=== PATIENT | female | born 1990 | race Caucasian/White ===

== ENCOUNTER 2021-06-22 02:30 | Inpatient (IN) | payer BC ==
[2021-06-22] VITALS (18 sets, daily range): BP systolic 98–120; BP diastolic 54–155
[~2021-06-22] VITALS: Ht 170.2 cm; Wt 81.8 kg
[2021-06-22] MEDS ORDERED: ondansetron/PF 4mg/2ml inj IV ONE ×2 (03:45→05:40)
[2021-06-22] MEDS ORDERED: morphine 4 MG/ML inj SYRINge IV ONE ×2 (03:45→05:00)
[2021-06-22 04:01] LABS: BASOPHILS # (AUTO) 0.1 X10'3 (0-0.2); BASOPHILS % (AUTO) 0.6 % (0-1); EOSINOPHILS # (AUTO) 0.1 X10'3 (0-0.9); EOSINOPHILS % (AUTO) 0.3 % (0-6); HEMATOCRIT 31.8 % (35.0-45.0); HEMOGLOBIN 10.2 g/dl (12.0-16.0); LYMPHOCYTES # (AUTO) 1.3 X10'3 (1.1-4.8); LYMPHOCYTES % (AUTO) 7.1 % (21-51); MEAN CORPUSCULAR HEMOGLOBIN 24.8 PG (27.0-31.0); MEAN CORPUSCULAR VOLUME 77.3 FL (78-98); MEAN PLATELET VOLUME 8.1 FL (7.4-10.4); MONOCYTES # (AUTO) 1.5 X10'3 (0-0.9); MONOCYTES % (AUTO) 8.3 % (2-12); NEUTROPHILS # (AUTO) 15.1 X10'3 (1.8-7.7); NEUTROPHILS % (AUTO) 83.7 % (42-75); PLATELET COUNT 451 X10'3 (140-440); RED BLOOD COUNT 4.12 X10'6 (4.20-5.60); RED CELL DISTRIBUTION WIDTH 15.7 % (11.5-14.5)
[2021-06-22 04:07] LABS: ALANINE AMINOTRANSFERASE 20 U/L (12-78); ALBUMIN 3.9 G/DL (3.4-5.0); ALKALINE PHOSPHATASE 111 IU/L (46-116); ANION GAP 17 (8-16); ASPARTATE AMINO TRANSFERASE 14 U/L (10-37); BILIRUBIN,TOTAL 0.5 MG/DL (0.1-1.0); BLOOD UREA NITROGEN 10 MG/DL (7-18); BUN/CREATININE RATIO 10.2 (6.6-38.0); CHLORIDE 104 MMOL/L (99-107); CREATININE 0.98 MG/DL (0.40-0.90); GLUCOSE 117 MG/DL (70-104); POTASSIUM 3.2 MMOL/L (3.5-5.1); SODIUM 140 MMOL/L (135-145); TOTAL PROTEIN 7.9 G/DL (6.4-8.2); eGFR 67 ML/MIN
[2021-06-22 04:36] LABS: CLARITY,URINE SLIGHTLY CLOUDY (Clear); COLOR,URINE YELLOW (Yellow); GLUCOSE, URINE NEGATIVE (Neg); KETONES,URINE 15 mg/dl (Neg); LEUKOCYTE ESTERASE ,URINE NEGATIVE (Neg); NITRITES, URINE NEGATIVE (Neg); OCCULT BLOOD,URINE NEGATIVE (Neg); PH,URINE 5.5 (4.8-8.0); PROTEIN,URINE 100 mg/dl (Neg)
[2021-06-22 04:42] LABS: UA COLLECTION TYPE CLN CATCH MIDSTREAM
[2021-06-22 04:45] LABS: RBC,URINE 0-2 /HPF (0-2); WBC,URINE 0-4 /HPF (0-4)
[2021-06-22 04:46] LABS: BACTERIA,URINE NONE SEEN /HPF (Neg); CAL OXALATE CRYSTALS 2+ /HPF (NEGATIVE); MUCUS STRANDS MANY /LPF (Neg); SQUAMOUS EPITHELIAL CELL,UR MODERATE /LPF (FEW)
[2021-06-22] MEDS ORDERED: acetaminophen 325mg tablet PO ONE (05:20)
[2021-06-22] MEDS ORDERED: normal saline 1000ML IV soln IVB ONE (05:40)
[2021-06-22] MEDS ORDERED: piperacillin/tazo 3.375gm/50ml 50 ML IV ONE (05:40)
[2021-06-22] MEDS ORDERED: ketorolac tromethamine 15mg/ml inj. IV ONE (05:40)
[2021-06-22] MEDS: morphine 2 MG/ML inj. syringe IV PRN ×6 (07:32→16:44)
[2021-06-22] MEDS ORDERED: LIDOcaine 1% W/epiNEPHrine 1:200,000 10ml vial IJ ONE (07:35)
[2021-06-22] MEDS ORDERED: iohexol 300mg/ml 100ml inj. ONE (08:18)
[2021-06-22 09:10] LABS: URINE HCG NEGATIVE (NEG)
--- NOTE | 2021-06-22 11:21 | NUR ---
DR. BUSTAMANTE AT THE BEDSIDE. LOOKED AT ABSCESS. TALKED TO PT. PT. GOING TO SURGERY AT 1800
[2021-06-22] MEDS ORDERED: acetaminophen 325mg tablet PO PRN (12:05)
[2021-06-22] MEDS ORDERED: magnesium 4gm in 100ml NS 100 ML IV PRN (12:05)
[2021-06-22] MEDS ORDERED: magnesium Cl slow-release 64mg tablet PO PRN (12:05)
[2021-06-22] MEDS ORDERED: potassium Cl 40MEQ/1/2NS 520ml 520 ML IV PRN (12:05)
[2021-06-22] MEDS ORDERED: morphine 2 MG/ML inj. syringe IV PRN ×2 (12:05→17:40)
[2021-06-22] MEDS ORDERED: potassium Cl 20 mEq SR tablet PO PRN ×2 (12:05)
[2021-06-22] MEDS ORDERED: magnesium hydroxide 30ml (MOM) UD suspension PO PRN (12:05)
[2021-06-22] MEDS ORDERED: magnesium 2GM in 50ml NS 50 ML IV PRN (12:05)
[2021-06-22] MEDS ORDERED: mag hydrox/Alum hydrox/simeth 30ml oral suspension PO PRN (12:05)
--- NOTE | 2021-06-22 13:41 | NUR ---
ice pack applied to perineum area
[2021-06-22] MEDS: potassium cl 20mEq in 1/2 NS 1,000 ML IV SCH ×2 (15:00→22:05)
[2021-06-22] MEDS: potassium Cl 40MEQ/1/2NS 520ml 520 ML IV PRN (16:46)
[2021-06-22] MEDS: piperacillin/tazo 4.5gm/100ml 100 ML IV SCH (16:59)
[2021-06-22] MEDS ORDERED: labetalol 20mg/4ml (5mg/ml) syringe IV PRN (17:40)
[2021-06-22] MEDS ORDERED: acetaminophen 1,000mg/100ml IV 100 ML IV PRN (17:40)
[2021-06-22] MEDS ORDERED: morphine 4 MG/ML inj SYRINge IV PRN (17:40)
[2021-06-22] MEDS ORDERED: meperidine/PF 25mg/ml syringe IV PRN ×2 (17:40)
[2021-06-22] MEDS ORDERED: proCHLORperazine 10 MG/2 ml inj IV PRN (17:40)
[2021-06-22] MEDS ORDERED: hydrALAZINE 20mg/ml inj. IV PRN (17:40)
[2021-06-22] MEDS ORDERED: ondansetron/PF 4mg/2ml inj IV PRN ×2 (17:40)
[2021-06-22] MEDS ORDERED: ringers solution, lacted 1,000 ML IV SCH ×2 (17:40)
[2021-06-22] MEDS ORDERED: sevoflurane 250ml liquid IH ONE (17:45)
[2021-06-22] MEDS ORDERED: potassium Cl 40 mEq/0.45% sodium chloride IV soln 520ml IV ONE (17:45)
[2021-06-22] MEDS ORDERED: famotidine/PF 10 mg/ml inj IV ONE (17:47)
[2021-06-22] MEDS ORDERED: midazolam 1 mg/ML 2ml injection ONE (17:48)
--- NOTE | 2021-06-22 17:52 | NUR ---
Called report to Ava in OR. Patient sent in bed with scrub techs, pre op checklist complete. IVF running, IV potassium replacement and zosyn running also, all compatible per pharmacy. Medicated with morphine before leaving the floor. Blood glucose was 94.
[2021-06-22] MEDS ORDERED: fentaNYL/PF 50MCG/1 ML 2ML syringe ONE ×2 (18:05→18:24)
[2021-06-22] MEDS ORDERED: propofol inj 20 ML IV ONE (18:05)
[2021-06-22] MEDS ORDERED: LIDOcaine 2% (20mg/ml) 5ml vial ONE (18:05)
[2021-06-22] MEDS ORDERED: ondansetron/PF 4mg/2ml inj ONE (18:05)
[2021-06-22] MEDS ORDERED: dexamethasone sod phosphate 4mg/ml inj. ONE (18:05)
[2021-06-22] MEDS ORDERED: HYDR-3964 PO (18:09)
[2021-06-22] MEDS ORDERED: DOXY-327 PO (18:09)
[2021-06-22] MEDS ORDERED: acetaminophen 1,000mg/100ml IV 100 ML IV ONE (18:31)
[2021-06-22] MEDS ORDERED: HYDROmorphone 1 mg/ml syringe ONE (18:32)
--- NOTE | 2021-06-22 18:50 | NUR ---
Problems reprioritized. Patient report given, questions answered & plan of care reviewed with Maximilian GRAY.
--- NOTE | 2021-06-22 18:50 | NUR ---
Received from OR via BED, accompanied by Anesthesiologist CARLOS and report given by Anesthesiolgist. PT DROWSY,OXYGENATING WELL ON 10 LPM O2 VIA MASK, NO RESP DISTRESS NOTED. DENIES NAUSEA OR PAIN AT THIS TIME. PT HAS SURGICAL BRIEFS IN PLACE WITH MARJORIE PAD. ATTEMPTED TO VISUALIZE DRAIN THATS IN PLACE BUT PT DIDNT WANT TO BE MOVED DUE TO PAIN. VSS.
[2021-06-22] MEDS: K and/or MAG REPLACEMENT MC SCH (20:00)
--- NOTE | 2021-06-22 20:30 | NUR ---
Report called to receiving nurse. Transferred via BED Belongings IN PT ROOM. VSS. PT DENIES ANY PAIN OR NAUSEA. TOLERATING PO FLUIDS WELL. TRANSFERRED TO 4014A IN STABLE CONDITION. Special Issues communicated to receiving nurse.
[2021-06-22] MEDS: docusate sod 100mg capsule PO SCH (21:32)
[2021-06-22] MEDS: HYDROcodone/acetaminophen 5mg/325mg tablet PO PRN (21:32)
[2021-06-22] MEDS ORDERED: NO HOME MEDS PO (23:26)
[2021-06-23 00:15] VITALS: BP 95/57
[2021-06-23] MEDS: piperacillin/tazo 4.5gm/100ml 100 ML IV SCH ×3 (00:34→16:08)
[2021-06-23] MEDS: HYDROcodone/acetaminophen 5mg/325mg tablet PO PRN ×5 (01:45→19:59)
[2021-06-23 02:00] VITALS: BP 109/62
[2021-06-23] MEDS: potassium cl 20mEq in 1/2 NS 1,000 ML IV SCH ×2 (05:56→21:14)
--- NOTE | 2021-06-23 06:25 | NUR ---
Patient in room [facility]THO 4014. I have received report from Maximilian GRAY and had the opportunity to ask questions and assume patient care.
[2021-06-23 06:29] LABS: BASOPHILS % (AUTO) 0 % (0-1); EOSINOPHILS % (AUTO) 0 % (0-6); HEMATOCRIT 29.2 % (35.0-45.0); HEMOGLOBIN 9.4 g/dl (12.0-16.0); LYMPHOCYTES # (AUTO) 0.5 X10'3 (1.1-4.8); LYMPHOCYTES % (AUTO) 1.8 % (21-51); MEAN CORPUSCULAR HEMOGLOBIN 25.1 PG (27.0-31.0); MEAN CORPUSCULAR HGB CONC 32.2 g/dL (33.0-36.5); MEAN CORPUSCULAR VOLUME 77.9 FL (78-98); MEAN PLATELET VOLUME 8.1 FL (7.4-10.4); MONOCYTES # (AUTO) 1.5 X10'3 (0-0.9); MONOCYTES % (AUTO) 5.5 % (2-12); NEUTROPHILS # (AUTO) 24.9 X10'3 (1.8-7.7); NEUTROPHILS % (AUTO) 92.7 % (42-75); PLATELET COUNT 430 X10'3 (140-440); RED BLOOD COUNT 3.74 X10'6 (4.20-5.60); RED CELL DISTRIBUTION WIDTH 15.6 % (11.5-14.5)
[2021-06-23 06:33] LABS: WHITE BLOOD COUNT 26.8 X10'3 (4.5-11.0)
--- NOTE | 2021-06-23 06:46 | NUR ---
Dr. Flood notified about the critical WBC this am 26.8. No new order received.
[2021-06-23 06:58] LABS: ALANINE AMINOTRANSFERASE 24 U/L (12-78); ALBUMIN 3.4 G/DL (3.4-5.0); ALBUMIN/GLOBULIN RATIO 0.9 (1.1-1.5); ALKALINE PHOSPHATASE 126 IU/L (46-116); ANION GAP 11 (8-16); ASPARTATE AMINO TRANSFERASE 12 U/L (10-37); BLOOD UREA NITROGEN 7 MG/DL (7-18); BUN/CREATININE RATIO 9.2 (6.6-38.0); CALCIUM 8.9 MG/DL (8.5-10.1); CHLORIDE 104 MMOL/L (99-107); CREATININE 0.76 MG/DL (0.40-0.90); GLUCOSE 131 MG/DL (70-104); MAGNESIUM 1.8 MG/DL (1.5-2.4); POTASSIUM 4.2 MMOL/L (3.5-5.1); SODIUM 137 MMOL/L (135-145); TOTAL CARBON DIOXIDE 22.4 MMOL/L (24-32); TOTAL PROTEIN 7.4 G/DL (6.4-8.2); eGFR 89 ML/MIN
[2021-06-23 07:37] LABS: PLATELET ESTIMATE NORMAL; TOTAL CELLS COUNTED 100
[2021-06-23] MEDS: docusate sod 100mg capsule PO SCH ×2 (07:48→19:59)
[2021-06-23] MEDS: enoxaparin 40mg/0.4ml syringe SUBCUT SCH (07:50)
[2021-06-23] MEDS: morphine 2 MG/ML inj. syringe IV PRN (07:53)
[2021-06-23] MEDS: K and/or MAG REPLACEMENT MC SCH ×2 (08:00→20:00)
--- NOTE | 2021-06-23 12:39 | NUR ---
I showed Dr. Mercer that part of her drain fell out when she voided and am waiting to see if he orders anything regarding it.
--- NOTE | 2021-06-23 12:45 | NUR ---
I spoke to the pt and she said Dr. Mercer said to continue to monitor for drainage to come from the area and if it doesn't drain to notify the surgeon. Since the part of the drain came out of her.
[2021-06-23] MEDS: ondansetron/PF 4mg/2ml inj IV PRN (15:30)
--- NOTE | 2021-06-23 16:50 | NUR ---
Patient cleaned herself after she peed into the bedside commode, she wiped herself and showed me small amount of drainage from the perianal area.
[2021-06-23 19:00] VITALS: BP 88/55
[2021-06-23] MEDS: lactobacillus rhamnosus 10,000 MMU CELLS/CAPSULE PO SCH (19:59)
[2021-06-23 23:30] VITALS: BP 88/48
[2021-06-24] VITALS (21 sets, daily range): BP systolic 89–115; BP diastolic 48–80
[2021-06-24] MEDS: piperacillin/tazo 4.5gm/100ml 100 ML IV SCH ×4 (00:19→23:28)
[2021-06-24] MEDS: HYDROcodone/acetaminophen 5mg/325mg tablet PO PRN ×2 (00:24→23:10)
--- NOTE | 2021-06-24 03:00 | NUR ---
Radha pad has about 1/2 the drainage of previous pad, remains SS w/ light red. No c/o pain after pain meds given. Tolerated walk in cade to room 344.
[2021-06-24] MEDS: potassium cl 20mEq in 1/2 NS 1,000 ML IV SCH ×2 (04:47→14:36)
[2021-06-24 06:10] LABS: BASOPHILS % (AUTO) 0.2 % (0-1); EOSINOPHILS % (AUTO) 0.1 % (0-6); HEMOGLOBIN 8.1 g/dl (12.0-16.0); LYMPHOCYTES % (AUTO) 5.2 % (21-51); MEAN CORPUSCULAR HEMOGLOBIN 25.1 PG (27.0-31.0); MEAN CORPUSCULAR HGB CONC 32.2 g/dL (33.0-36.5); MEAN CORPUSCULAR VOLUME 77.7 FL (78-98); MEAN PLATELET VOLUME 8.1 FL (7.4-10.4); MONOCYTES # (AUTO) 1.3 X10'3 (0-0.9); MONOCYTES % (AUTO) 6.9 % (2-12); NEUTROPHILS # (AUTO) 16.3 X10'3 (1.8-7.7); NEUTROPHILS % (AUTO) 87.6 % (42-75); PLATELET COUNT 349 X10'3 (140-440); RED BLOOD COUNT 3.22 X10'6 (4.20-5.60); RED CELL DISTRIBUTION WIDTH 15.6 % (11.5-14.5); WHITE BLOOD COUNT 18.6 X10'3 (4.5-11.0)
[2021-06-24 06:34] LABS: ALANINE AMINOTRANSFERASE 22 U/L (12-78); ALBUMIN 2.8 G/DL (3.4-5.0); ALBUMIN/GLOBULIN RATIO 0.7 (1.1-1.5); ALKALINE PHOSPHATASE 166 IU/L (46-116); ANION GAP 14 (8-16); ASPARTATE AMINO TRANSFERASE 16 U/L (10-37); BILIRUBIN,TOTAL 1.1 MG/DL (0.1-1.0); BLOOD UREA NITROGEN 5 MG/DL (7-18); BUN/CREATININE RATIO 5.9 (6.6-38.0); CALCIUM 8.4 MG/DL (8.5-10.1); CHLORIDE 102 MMOL/L (99-107); CREATININE 0.85 MG/DL (0.40-0.90); GLUCOSE 109 MG/DL (70-104); MAGNESIUM 1.7 MG/DL (1.5-2.4); POTASSIUM 3.4 MMOL/L (3.5-5.1); SODIUM 139 MMOL/L (135-145); TOTAL CARBON DIOXIDE 23.2 MMOL/L (24-32); TOTAL PROTEIN 6.6 G/DL (6.4-8.2); eGFR 79 ML/MIN
--- NOTE | 2021-06-24 06:45 | NUR ---
Patient in room [facility] 349. I have received report from ISAAC Carranza and had the opportunity to ask questions and assume patient care.
[2021-06-24] MEDS: K and/or MAG REPLACEMENT MC SCH ×2 (07:55→20:00)
[2021-06-24] MEDS: docusate sod 100mg capsule PO SCH ×2 (08:00→20:52)
[2021-06-24] MEDS: enoxaparin 40mg/0.4ml syringe SUBCUT SCH (08:00)
[2021-06-24] MEDS: lactobacillus rhamnosus 10,000 MMU CELLS/CAPSULE PO SCH ×2 (08:00→20:52)
[2021-06-24] MEDS: morphine 2 MG/ML inj. syringe IV PRN (08:11)
[2021-06-24] MEDS: ondansetron/PF 4mg/2ml inj IV PRN (08:18)
--- NOTE | 2021-06-24 08:22 | NUR ---
JOIE scanner not scanning MS or Zofran. Meds admin per MD order.
--- NOTE | 2021-06-24 08:29 | NUR ---
Call to Dr Mercer re: L perineum is not draining (drain no longer in) and pt pain 7/10, area firm and pt intolerable of palpation of area. MD to take pt to OR.
[2021-06-24] MEDS: potassium Cl 40MEQ/1/2NS 520ml 520 ML IV PRN (08:40)
[2021-06-24] MEDS ORDERED: acetaminophen 325mg tablet PO ONE (10:20)
[2021-06-24] MEDS ORDERED: ringers solution, lacted 1,000 ML IV SCH (10:45)
[2021-06-24] MEDS ORDERED: morphine 4 MG/ML inj SYRINge IV PRN (10:45)
[2021-06-24] MEDS ORDERED: meperidine/PF 25mg/ml syringe IV PRN ×3 (10:45)
[2021-06-24] MEDS ORDERED: acetaminophen 1,000mg/100ml IV 100 ML IV PRN (10:45)
[2021-06-24] MEDS ORDERED: morphine 2 MG/ML inj. syringe IV PRN (10:45)
[2021-06-24] MEDS ORDERED: proCHLORperazine 10 MG/2 ml inj IV PRN (10:45)
[2021-06-24] MEDS ORDERED: labetalol 20mg/4ml (5mg/ml) syringe IV PRN (10:45)
[2021-06-24] MEDS ORDERED: hydrALAZINE 20mg/ml inj. IV PRN (10:45)
[2021-06-24] MEDS ORDERED: ondansetron/PF 4mg/2ml inj IV PRN (10:45)
--- NOTE | 2021-06-24 10:46 | NUR ---
Pt's temp 102.2 and Acetaminophen [address] Serrato's order. Dr[address] Mercer aware of fever as well. Pt picked up by OR orderlies. Report given to ISAAC Akhtar in RR who agreed to perform pt's pre-op accucheck.
[2021-06-24] MEDS ORDERED: midazolam 1 mg/ML 2ml injection ONE (10:47)
[2021-06-24] MEDS ORDERED: sevoflurane 250ml liquid IH ONE (11:02)
[2021-06-24] MEDS ORDERED: fentaNYL/PF 50MCG/1 ML 2ML syringe ONE (11:20)
[2021-06-24] MEDS ORDERED: propofol inj 20 ML IV ONE (11:22)
[2021-06-24] MEDS ORDERED: dexamethasone sod phosphate 4mg/ml inj. ONE (11:23)
[2021-06-24] MEDS ORDERED: LIDOcaine 2% (20mg/ml) 5ml vial ONE (11:23)
[2021-06-24] MEDS ORDERED: ondansetron/PF 4mg/2ml inj ONE (11:23)
[2021-06-24] MEDS ORDERED: BUPIVAcaine 0.5% W/EPI /PF 30ml vial ONE (11:26)
[2021-06-24] MEDS ORDERED: HYDROmorphone 1 mg/ml syringe ONE ×2 (11:32→11:41)
--- NOTE | 2021-06-24 11:53 | NUR ---
Received from OR via hospital bed, accompanied by Anesthesiologist gui and report given by Anesthesiolgist. no co pain, skin warm. tachy at 109. dressing is a chux between the legs, it is cdi. states feels better than before surgery.
--- NOTE | 2021-06-24 13:23 | NUR ---
TO SURGICAL FLOOR AFTER REPORT CALLED. DID HAVE A FEW MINUTES OF SATS LOWER THAN 92% SO PLACED ON 2 L O2. NO PAIN. VSS, IV PATENT. PT DOING VERY WELL AND WOULD LIKE TO TAKE A SHOWER. SPOKE WITH DIONISIO CHARGE NURSE, DELIVERED PT TO ROOM 349 A WITHOUT INCIDENT. ALL QUESTIONS ANSWERED, ALL CONCERNS ADDRESSED.
--- NOTE | 2021-06-24 13:45 | NUR ---
Rec'd pt from OR. Pt sleepy and states she "feels better". RR even and unlabored, O2 post op @ 2L/NC sats=95%. Tip of white drain visible at L labia. Pt denies n/v and pain at this time. IV fluids running 300cc LR from RR to RAC PIV, per RR RN. Orders being reviewed.
--- NOTE | 2021-06-24 17:30 | NUR ---
Pt up to void w/ sba to bathroom. Gait steady, net panties provided.
--- NOTE | 2021-06-24 18:30 | NUR ---
Patient report given, questions answered & plan of care reviewed with Yudith Christianson RN.
--- NOTE | 2021-06-24 18:30 | NUR ---
Patient in room [facility] 349. I have received report from ISAAC Villanueva and had the opportunity to ask questions and assume patient care.
--- NOTE | 2021-06-24 23:19 | NUR ---
Student documentation: I have reviewed interventions, assessments performed and documented by Lucho DUBOIS [facility].
--- NOTE | 2021-06-24 23:20 | NUR ---
Student Medication Administration: For this medication-pass time frame, all medication were reviewed, dispensed, administered and documented per hospital policy by Lucho DUBOIS [facility].
[2021-06-25] VITALS (8 sets, daily range): BP systolic 92–107; BP diastolic 26–68
[2021-06-25] MEDS: potassium cl 20mEq in 1/2 NS 1,000 ML IV SCH ×3 (01:13→20:05)
[2021-06-25 06:19] LABS: BASOPHILS % (AUTO) 0.1 % (0-1); EOSINOPHILS % (AUTO) 0 % (0-6); HEMOGLOBIN 7.1 g/dl (12.0-16.0); LYMPHOCYTES # (AUTO) 0.6 X10'3 (1.1-4.8); LYMPHOCYTES % (AUTO) 4.4 % (21-51); MEAN CORPUSCULAR HGB CONC 32.6 g/dL (33.0-36.5); MEAN CORPUSCULAR VOLUME 76.5 FL (78-98); MEAN PLATELET VOLUME 8.1 FL (7.4-10.4); MONOCYTES # (AUTO) 0.6 X10'3 (0-0.9); MONOCYTES % (AUTO) 4.7 % (2-12); NEUTROPHILS # (AUTO) 12.2 X10'3 (1.8-7.7); NEUTROPHILS % (AUTO) 90.8 % (42-75); PLATELET COUNT 299 X10'3 (140-440); RED BLOOD COUNT 2.84 X10'6 (4.20-5.60); RED CELL DISTRIBUTION WIDTH 15.5 % (11.5-14.5); WHITE BLOOD COUNT 13.4 X10'3 (4.5-11.0)
[2021-06-25 06:35] LABS: ALANINE AMINOTRANSFERASE 20 U/L (12-78); ALBUMIN 2.5 G/DL (3.4-5.0); ALBUMIN/GLOBULIN RATIO 0.6 (1.1-1.5); ALKALINE PHOSPHATASE 153 IU/L (46-116); ANION GAP 11 (8-16); ASPARTATE AMINO TRANSFERASE 10 U/L (10-37); BILIRUBIN,TOTAL 0.5 MG/DL (0.1-1.0); BLOOD UREA NITROGEN 9 MG/DL (7-18); BUN/CREATININE RATIO 13.4 (6.6-38.0); CALCIUM 8.5 MG/DL (8.5-10.1); CHLORIDE 104 MMOL/L (99-107); CREATININE 0.67 MG/DL (0.40-0.90); GLUCOSE 136 MG/DL (70-104); MAGNESIUM 2.1 MG/DL (1.5-2.4); POTASSIUM 4.3 MMOL/L (3.5-5.1); SODIUM 139 MMOL/L (135-145); TOTAL CARBON DIOXIDE 23.6 MMOL/L (24-32); TOTAL PROTEIN 6.5 G/DL (6.4-8.2); eGFR > 90 ML/MIN
[2021-06-25 06:40] LABS: HEMATOCRIT 21.8 % (35.0-45.0)
--- NOTE | 2021-06-25 06:41 | NUR ---
Problems reprioritized. Patient report given, questions answered & plan of care reviewed with ISAAC Cortez.
[2021-06-25] MEDS: piperacillin/tazo 4.5gm/100ml 100 ML IV SCH (07:17)
[2021-06-25] MEDS: lactobacillus rhamnosus 10,000 MMU CELLS/CAPSULE PO SCH ×2 (07:17→19:50)
[2021-06-25] MEDS: HYDROcodone/acetaminophen 5mg/325mg tablet PO PRN ×3 (07:18→19:50)
[2021-06-25] MEDS: K and/or MAG REPLACEMENT MC SCH ×2 (08:00→20:00)
[2021-06-25] MEDS: docusate sod 100mg capsule PO SCH ×2 (08:00→19:50)
[2021-06-25] MEDS: enoxaparin 40mg/0.4ml syringe SUBCUT SCH (08:00)
[2021-06-25] MEDS: piperacillin/tazo 3.375gm/50ml 50 ML IV SCH ×2 (17:59→23:49)
--- NOTE | 2021-06-25 18:24 | NUR ---
Patient in room [facility] 349. I have received report from ISAAC Cortez and had the opportunity to ask questions and assume patient care.
--- NOTE | 2021-06-25 18:26 | NUR ---
Problems reprioritized. Patient report given, questions answered & plan of care reviewed with Yudith GRAY.
[2021-06-26] VITALS (19 sets, daily range): BP systolic 89–121; BP diastolic 54–73
[2021-06-26] MEDS: HYDROcodone/acetaminophen 5mg/325mg tablet PO PRN ×2 (03:03→07:33)
[2021-06-26] MEDS: potassium cl 20mEq in 1/2 NS 1,000 ML IV SCH ×2 (05:30→14:59)
[2021-06-26 05:58] LABS: BASOPHILS % (AUTO) 0.4 % (0-1); EOSINOPHILS % (AUTO) 0.3 % (0-6); HEMATOCRIT 24.1 % (35.0-45.0); HEMOGLOBIN 7.9 g/dl (12.0-16.0); LYMPHOCYTES % (AUTO) 16.4 % (21-51); MEAN CORPUSCULAR HEMOGLOBIN 25.7 PG (27.0-31.0); MEAN CORPUSCULAR HGB CONC 32.8 g/dL (33.0-36.5); MEAN CORPUSCULAR VOLUME 78.2 FL (78-98); MEAN PLATELET VOLUME 7.9 FL (7.4-10.4); MONOCYTES # (AUTO) 0.8 X10'3 (0-0.9); MONOCYTES % (AUTO) 6.4 % (2-12); NEUTROPHILS # (AUTO) 9.4 X10'3 (1.8-7.7); NEUTROPHILS % (AUTO) 76.5 % (42-75); PLATELET COUNT 328 X10'3 (140-440); RED BLOOD COUNT 3.09 X10'6 (4.20-5.60); RED CELL DISTRIBUTION WIDTH 15.7 % (11.5-14.5); WHITE BLOOD COUNT 12.3 X10'3 (4.5-11.0)
[2021-06-26 06:05] LABS: PARTIAL THROMBOPLASTIN TIME 24 SECONDS (22-32)
[2021-06-26 06:14] LABS: ALANINE AMINOTRANSFERASE 24 U/L (12-78); ALBUMIN 2.6 G/DL (3.4-5.0); ALBUMIN/GLOBULIN RATIO 0.7 (1.1-1.5); ALKALINE PHOSPHATASE 163 IU/L (46-116); ANION GAP 6 (8-16); ASPARTATE AMINO TRANSFERASE 21 U/L (10-37); BILIRUBIN,TOTAL 0.6 MG/DL (0.1-1.0); BLOOD UREA NITROGEN 9 MG/DL (7-18); BUN/CREATININE RATIO 10.3 (6.6-38.0); CALCIUM 8.7 MG/DL (8.5-10.1); CHLORIDE 107 MMOL/L (99-107); CREATININE 0.87 MG/DL (0.40-0.90); GLUCOSE 96 MG/DL (70-104); MAGNESIUM 1.9 MG/DL (1.5-2.4); POTASSIUM 3.4 MMOL/L (3.5-5.1); SODIUM 139 MMOL/L (135-145); TOTAL CARBON DIOXIDE 25.9 MMOL/L (24-32); TOTAL PROTEIN 6.2 G/DL (6.4-8.2); eGFR 76 ML/MIN
--- NOTE | 2021-06-26 06:20 | NUR ---
Patient in room [facility] 349. I have received report from Yudith GRAY and had the opportunity to ask questions and assume patient care.
--- NOTE | 2021-06-26 06:42 | NUR ---
Problems reprioritized. Patient report given, questions answered & plan of care reviewed with ISAAC Cortez.
--- NOTE | 2021-06-26 06:45 | NUR ---
Patient in room [facility] 349. I have received report from Yudith GRAY with Dana GRAY and had the opportunity to ask questions and assume patient care.
[2021-06-26] MEDS: lactobacillus rhamnosus 10,000 MMU CELLS/CAPSULE PO SCH ×2 (07:34→20:01)
[2021-06-26] MEDS: docusate sod 100mg capsule PO SCH ×2 (07:34→20:01)
[2021-06-26] MEDS: piperacillin/tazo 3.375gm/50ml 50 ML IV SCH ×2 (07:35→15:48)
[2021-06-26] MEDS: K and/or MAG REPLACEMENT MC SCH ×2 (08:00→20:00)
[2021-06-26] MEDS: enoxaparin 40mg/0.4ml syringe SUBCUT SCH (08:00)
--- NOTE | 2021-06-26 08:45 | NUR ---
Pt going to OR with Dr Mercer for an I & D. Glucose 86. K 3.4 Recovery aware.
--- NOTE | 2021-06-26 08:52 | NUR ---
Problems reprioritized. Patient report given, questions answered & plan of care reviewed with Rafaela GRAY in recovery .
[2021-06-26] MEDS: morphine 2 MG/ML inj. syringe IV PRN ×2 (09:05→10:36)
[2021-06-26] MEDS ORDERED: sevoflurane 250ml liquid IH ONE (09:19)
[2021-06-26] MEDS ORDERED: propofol inj 20 ML IV ONE (09:28)
[2021-06-26] MEDS ORDERED: fentaNYL/PF 50MCG/1 ML 2ML syringe ONE ×2 (09:34→09:49)
--- NOTE | 2021-06-26 10:05 | NUR ---
ADMITTED TO PACU FROM OR ACCOMPANIED BY ANESTHESIA. INTIAL PHYSICAL ASSESSMENT DONE AND RECORDED. REPORT RECEIVED FROM ANESTHESIA.
[2021-06-26] MEDS ORDERED: morphine 2 MG/ML inj. syringe IV PRN (10:15)
[2021-06-26] MEDS ORDERED: ondansetron/PF 4mg/2ml inj IV PRN (10:15)
[2021-06-26] MEDS ORDERED: ringers solution, lacted 1,000 ML IV SCH (10:15)
[2021-06-26] MEDS ORDERED: meperidine/PF 25mg/ml syringe IV PRN ×3 (10:15)
[2021-06-26] MEDS ORDERED: morphine 4 MG/ML inj SYRINge IV PRN (10:15)
[2021-06-26] MEDS ORDERED: proCHLORperazine 10 MG/2 ml inj IV PRN (10:15)
[2021-06-26] MEDS ORDERED: HYDROcodone/acetaminophen 10/325mg tab PO ONE (10:30)
--- NOTE | 2021-06-26 11:15 | NUR ---
PACU DISCHARGE CRITERIA MET, REPORT GIVEN TO FLOOR. DENIES PAIN OR DISCOMFORT. PT IS STABLE AND ADEQUATELY RECOVERED FROM ANESTHESIA. PT HAS STABLE AIRWAY PATENCY, RESPIRATORY FUNCTION TO INCLUDE RESPIRATORY RATE AND O2 SAT. HEART RATE, BLOOD PRESSURE STABLE AND HYDRATION ADEQUATE. MENTAL STATUS IS APPROPRIATE. PAIN AND NAUSEA CONTROLLED. REFER TO PACU SPREADSHEET FOR VITAL SIGNS.
[2021-06-26] MEDS ORDERED: CADD PCA waste documentation MC PRN (11:35)
[2021-06-26] MEDS ORDERED: naloxone 0.4 mg/ml inj IV PRN (11:35)
[2021-06-26] MEDS ORDERED: ketorolac tromethamine 15mg/ml inj. IM ONE (11:35)
[2021-06-26] MEDS ORDERED: ketorolac trometh. 30mg/ml inj. IV ONE (11:45)
[2021-06-26] MEDS ORDERED: ketorolac trometh. 30mg/ml inj. IV PRN (13:50)
[2021-06-26] MEDS ORDERED: ketorolac tromethamine 15mg/ml inj. IV SCH (14:00)
[2021-06-26] MEDS: HYDROmorph./NS 0.2 mg/ml CADD 100 ML IV SCH ×6 (14:28→23:00)
[2021-06-26] MEDS ORDERED: potassium Cl 20 mEq SR tablet PO STA (15:06)
--- NOTE | 2021-06-26 16:44 | NUR ---
Patient educated about pate placement but is apprehensive about it. She is using the bedpan for now and will reasses need for pate tomorrow
--- NOTE | 2021-06-26 18:20 | NUR ---
Problems reprioritized. Patient report given, questions answered & plan of care reviewed with Usha RN and Dana GRAY.
--- NOTE | 2021-06-26 18:29 | NUR ---
Problems reprioritized. Patient report given, questions answered & plan of care reviewed with Prudence RN.
--- NOTE | 2021-06-26 18:40 | NUR ---
Patient in room [facility] 349. I have received report from NADEEM GRAY and had the opportunity to ask questions and assume patient care.
[2021-06-27] MEDS: piperacillin/tazo 3.375gm/50ml 50 ML IV SCH ×3 (00:15→16:37)
[2021-06-27] MEDS: potassium cl 20mEq in 1/2 NS 1,000 ML IV SCH ×3 (00:15→20:18)
[2021-06-27 00:43] VITALS: BP 109/68
[2021-06-27] MEDS: HYDROmorph./NS 0.2 mg/ml CADD 100 ML IV SCH ×12 (01:00→23:00)
[2021-06-27 06:03] LABS: BASOPHILS # (AUTO) 0.1 X10'3 (0-0.2); BASOPHILS % (AUTO) 0.5 % (0-1); EOSINOPHILS # (AUTO) 0.3 X10'3 (0-0.9); EOSINOPHILS % (AUTO) 1.9 % (0-6); HEMATOCRIT 25.3 % (35.0-45.0); HEMOGLOBIN 8.1 g/dl (12.0-16.0); LYMPHOCYTES # (AUTO) 2.3 X10'3 (1.1-4.8); LYMPHOCYTES % (AUTO) 16.3 % (21-51); MEAN CORPUSCULAR HEMOGLOBIN 25.6 PG (27.0-31.0); MEAN CORPUSCULAR HGB CONC 32.2 g/dL (33.0-36.5); MEAN CORPUSCULAR VOLUME 79.5 FL (78-98); MEAN PLATELET VOLUME 7.7 FL (7.4-10.4); MONOCYTES # (AUTO) 1.2 X10'3 (0-0.9); MONOCYTES % (AUTO) 8.3 % (2-12); NEUTROPHILS # (AUTO) 10.2 X10'3 (1.8-7.7); PLATELET COUNT 387 X10'3 (140-440); RED BLOOD COUNT 3.19 X10'6 (4.20-5.60); RED CELL DISTRIBUTION WIDTH 15.9 % (11.5-14.5)
[2021-06-27 06:20] LABS: ALANINE AMINOTRANSFERASE 38 U/L (12-78); ALBUMIN 2.4 G/DL (3.4-5.0); ALBUMIN/GLOBULIN RATIO 0.6 (1.1-1.5); ALKALINE PHOSPHATASE 166 IU/L (46-116); ANION GAP 11 (8-16); ASPARTATE AMINO TRANSFERASE 22 U/L (10-37); BILIRUBIN,TOTAL 0.6 MG/DL (0.1-1.0); BLOOD UREA NITROGEN 4 MG/DL (7-18); BUN/CREATININE RATIO 5.4 (6.6-38.0); CALCIUM 8.5 MG/DL (8.5-10.1); CHLORIDE 104 MMOL/L (99-107); CREATININE 0.74 MG/DL (0.40-0.90); GLUCOSE 85 MG/DL (70-104); MAGNESIUM 1.9 MG/DL (1.5-2.4); SODIUM 139 MMOL/L (135-145); TOTAL CARBON DIOXIDE 23.6 MMOL/L (24-32); TOTAL PROTEIN 6.2 G/DL (6.4-8.2); eGFR > 90 ML/MIN
--- NOTE | 2021-06-27 06:37 | NUR ---
Problems reprioritized. Patient report given, questions answered & plan of care reviewed with KHOI RN.
--- NOTE | 2021-06-27 06:55 | NUR ---
Patient in room [facility] 349. I have received report from Usha GRAY and had the opportunity to ask questions and assume patient care.
[2021-06-27 07:00] VITALS: BP 114/71
[2021-06-27] MEDS: K and/or MAG REPLACEMENT MC SCH ×2 (08:00→19:16)
[2021-06-27] MEDS: lactobacillus rhamnosus 10,000 MMU CELLS/CAPSULE PO SCH ×2 (08:08→20:18)
[2021-06-27] MEDS: docusate sod 100mg capsule PO SCH ×2 (08:08→20:00)
[2021-06-27] MEDS: enoxaparin 40mg/0.4ml syringe SUBCUT SCH (08:10)
--- NOTE | 2021-06-27 12:13 | NUR ---
Initial: Pt admit for Bartholin abscess. Pt s/p multiple I&Ds. Pt on a liquid diet throughout LOS, unable to meet estimated nutrient needs, however diet has just been advanced to regular. Pending first meal since diet advancement. LBM 06/25. Pt receiving routine Colace and routine MoM BID was just added to med list today. Will continue to follow closely and monitor need for nutrition intervention pending trends in PO intake with diet advancement. Recommendations: 1) Continue regular diet 2) Monitor need for additional protein/ONS 3) Routine bowel care 4) Scaled weight this admit; weekly scaled weights thereafter Addendum: 06/27/21 at [address] Amended: Links added.
[2021-06-27 12:37] VITALS: BP 120/84
[2021-06-27 18:00] VITALS: BP 117/76
--- NOTE | 2021-06-27 18:13 | NUR ---
Problems reprioritized. Patient report given, questions answered & plan of care reviewed with PRUDENCE RN.
--- NOTE | 2021-06-27 18:42 | NUR ---
Patient in room [facility] 349. I have received report from KHOI GRAY and had the opportunity to ask questions and assume patient care.
[2021-06-27] MEDS: magnesium hydroxide 30ml (MOM) UD suspension PO SCH (20:00)
[2021-06-28] MEDS: piperacillin/tazo 3.375gm/50ml 50 ML IV SCH ×4 (00:12→23:57)
[2021-06-28 00:30] VITALS: BP 115/79
[2021-06-28] MEDS: HYDROmorph./NS 0.2 mg/ml CADD 100 ML IV SCH ×5 (01:00→08:50)
[2021-06-28] MEDS: potassium cl 20mEq in 1/2 NS 1,000 ML IV SCH ×3 (05:10→23:58)
--- NOTE | 2021-06-28 06:27 | NUR ---
Problems reprioritized. Patient report given, questions answered & plan of care reviewed with ZAYNAB GRAY.
--- NOTE | 2021-06-28 06:38 | NUR ---
I have received report from Usha RN and had the opportunity to ask questions and assume patient care.
[2021-06-28] MEDS: lactobacillus rhamnosus 10,000 MMU CELLS/CAPSULE PO SCH ×2 (07:43→20:37)
[2021-06-28] MEDS: enoxaparin 40mg/0.4ml syringe SUBCUT SCH (07:44)
[2021-06-28] MEDS: magnesium hydroxide 30ml (MOM) UD suspension PO SCH ×2 (07:46→20:00)
[2021-06-28] MEDS: docusate sod 100mg capsule PO SCH ×2 (07:46→20:37)
[2021-06-28] MEDS: K and/or MAG REPLACEMENT MC SCH ×2 (07:47→20:00)
[2021-06-28 08:00] VITALS: BP 122/79
[2021-06-28 11:00] VITALS: BP 110/72
[2021-06-28] MEDS ORDERED: HYDROmorphone inj. 0.5 MG/0.5 ML DISP.SYRIN IV PRN (11:20)
[2021-06-28] MEDS: ketorolac trometh. 30mg/ml inj. IV PRN (12:31)
[2021-06-28] MEDS: HYDROcodone/acetaminophen 10/325mg tab PO PRN ×2 (13:58→19:15)
--- NOTE | 2021-06-28 18:21 | NUR ---
Problems reprioritized. Patient report given, questions answered & plan of care reviewed with Michaela GRAY.
--- NOTE | 2021-06-28 18:30 | NUR ---
Patient in room [facility] 349. I have received report from ZAYNAB and had the opportunity to ask questions and assume patient care. ASSUMED CARE OF PT WITH RN STUDENT CHLOE Truong
[2021-06-28 19:00] VITALS: BP 111/69
[2021-06-28] MEDS: ondansetron/PF 4mg/2ml inj IV PRN (19:16)
[2021-06-28 23:00] VITALS: BP 110/72
[2021-06-29] MEDS: HYDROcodone/acetaminophen 10/325mg tab PO PRN ×5 (00:08→20:04)
[2021-06-29] MEDS: ketorolac trometh. 30mg/ml inj. IV PRN (04:56)
--- NOTE | 2021-06-29 06:20 | NUR ---
Problems reprioritized. Patient report given, questions answered & plan of care reviewed with JANNIE.
[2021-06-29 06:36] LABS: BASOPHILS # (AUTO) 0.1 X10'3 (0-0.2); BASOPHILS % (AUTO) 0.6 % (0-1); EOSINOPHILS # (AUTO) 0.5 X10'3 (0-0.9); EOSINOPHILS % (AUTO) 5.1 % (0-6); HEMATOCRIT 26.3 % (35.0-45.0); HEMOGLOBIN 8.8 g/dl (12.0-16.0); LYMPHOCYTES % (AUTO) 20.5 % (21-51); MEAN CORPUSCULAR HEMOGLOBIN 25.8 PG (27.0-31.0); MEAN CORPUSCULAR HGB CONC 33.3 g/dL (33.0-36.5); MEAN CORPUSCULAR VOLUME 77.4 FL (78-98); MONOCYTES # (AUTO) 0.6 X10'3 (0-0.9); MONOCYTES % (AUTO) 5.9 % (2-12); NEUTROPHILS # (AUTO) 6.6 X10'3 (1.8-7.7); NEUTROPHILS % (AUTO) 67.9 % (42-75); PLATELET COUNT 528 X10'3 (140-440); RED CELL DISTRIBUTION WIDTH 15.8 % (11.5-14.5); WHITE BLOOD COUNT 9.7 X10'3 (4.5-11.0)
--- NOTE | 2021-06-29 06:57 | NUR ---
Patient in room [facility] 349A. I have received report from ISAAC SCHNEIDER and had the opportunity to ask questions and assume patient care.
[2021-06-29 06:59] LABS: ALBUMIN 2.6 G/DL (3.4-5.0); ANION GAP 12 (8-16); BLOOD UREA NITROGEN 7 MG/DL (7-18); BUN/CREATININE RATIO 8.4 (6.6-38.0); CALCIUM 8.5 MG/DL (8.5-10.1); CHLORIDE 104 MMOL/L (99-107); CREATININE 0.83 MG/DL (0.40-0.90); GLUCOSE 112 MG/DL (70-104); MAGNESIUM 2.1 MG/DL (1.5-2.4); POTASSIUM 3.8 MMOL/L (3.5-5.1); SODIUM 139 MMOL/L (135-145); TOTAL CARBON DIOXIDE 22.7 MMOL/L (24-32); eGFR 81 ML/MIN
[2021-06-29 08:00] VITALS: BP 111/63
[2021-06-29] MEDS: enoxaparin 40mg/0.4ml syringe SUBCUT SCH (08:00)
[2021-06-29] MEDS: magnesium hydroxide 30ml (MOM) UD suspension PO SCH ×2 (08:00→20:00)
[2021-06-29] MEDS: K and/or MAG REPLACEMENT MC SCH ×2 (08:00→20:00)
[2021-06-29] MEDS: piperacillin/tazo 3.375gm/50ml 50 ML IV SCH ×2 (08:03→16:00)
[2021-06-29] MEDS: docusate sod 100mg capsule PO SCH ×2 (08:03→20:00)
[2021-06-29] MEDS: lactobacillus rhamnosus 10,000 MMU CELLS/CAPSULE PO SCH ×2 (08:03→20:03)
--- NOTE | 2021-06-29 08:30 | NUR ---
Problems reprioritized. Patient report given, questions answered & plan of care reviewed with ISAAC SILVER.
--- NOTE | 2021-06-29 08:41 | NUR ---
Patient in room [facility] 349. I have received report from Luisa GRAY and had the opportunity to ask questions and assume patient care.
[2021-06-29 11:00] VITALS: BP 115/65
[2021-06-29] MEDS: potassium cl 20mEq in 1/2 NS 1,000 ML IV SCH (11:27)
--- NOTE | 2021-06-29 18:26 | NUR ---
Problems reprioritized. Patient report given, questions answered & plan of care reviewed with Katja Hightower RN.
--- NOTE | 2021-06-29 18:30 | NUR ---
Patient in room [facility] 349. I have received report from NDAEEM GRAY and had the opportunity to ask questions and assume patient care.
[2021-06-29 20:00] VITALS: BP 126/81
[2021-06-30 00:05] VITALS: BP 117/71
[2021-06-30] MEDS: HYDROcodone/acetaminophen 10/325mg tab PO PRN ×3 (00:19→12:27)
[2021-06-30] MEDS: piperacillin/tazo 3.375gm/50ml 50 ML IV SCH ×2 (00:20→08:34)
[2021-06-30] MEDS: potassium cl 20mEq in 1/2 NS 1,000 ML IV SCH ×2 (00:24→10:05)
[2021-06-30] MEDS: ketorolac trometh. 30mg/ml inj. IV PRN (03:40)
--- NOTE | 2021-06-30 06:30 | NUR ---
Patient in room [facility] 349. I have received report from Katja Hightower RN with Dana GRAY and had the opportunity to ask questions and assume patient care.
--- NOTE | 2021-06-30 06:30 | NUR ---
Problems reprioritized. Patient report given, questions answered & plan of care reviewed with NADEEM GRAY.
--- NOTE | 2021-06-30 06:57 | NUR ---
Patient in room [facility] 349. I have received report from Katja Hightower RN and had the opportunity to ask questions and assume patient care.
[2021-06-30 08:00] VITALS: BP 119/74
[2021-06-30] MEDS: magnesium hydroxide 30ml (MOM) UD suspension PO SCH (08:00)
[2021-06-30] MEDS: K and/or MAG REPLACEMENT MC SCH (08:00)
[2021-06-30] MEDS: docusate sod 100mg capsule PO SCH (08:00)
[2021-06-30] MEDS: lactobacillus rhamnosus 10,000 MMU CELLS/CAPSULE PO SCH (08:33)
[2021-06-30] MEDS: enoxaparin 40mg/0.4ml syringe SUBCUT SCH (08:33)
[2021-06-30] MEDS ORDERED: IBUP-1986 PO (09:54)
[2021-06-30 11:00] VITALS: BP 115/80
[2021-06-30] MEDS ORDERED: OXYC-145 PO (13:41)
[2021-06-30] MEDS ORDERED: AMOX-422 PO (13:41)
--- NOTE | 2021-06-30 14:25 | NUR ---
Pt DC to home with mom. Pt is A & o x4 and in no apparent distress. Pt verbalizes understanding of all DC orders. pt able to teach back wound care Addendum: 06/30/21 at 1649 by Dana Bourgeois RN and follow up instructions. Pt is stable, IV cath removed intact. Pt;s mom coming to get her. Pt dress herself and will be going to moms. pt is wheeled to the front where her mom took her home.
== END 2021-06-30 14:20 | disposition home or self-care (01) | DRG 746 ==
LOC: ER 02:32 → ED HOLD 12:14 → ORTHO 4S 16:20 → SUR 3N 06-23 11:10
PROVIDERS: ADMIT Internal Medicine; ATTEND Internal Medicine
PROC: 0U9G0ZZ Drainage of Vagina, Open Approach (ICD-10-PCS; 2021-06-22)
PROC: 0U9L00Z Drainage of Vestibular Gland with Drainage Device, Open Approach (ICD-10-PCS; 2021-06-22)
PROC: BW211ZZ Computerized Tomography (CT Scan) of Abdomen and Pelvis using Low Osmolar Contrast (ICD-10-PCS; 2021-06-22)
PROC: 30233N1 Transfusion of Nonautologous Red Blood Cells into Peripheral Vein, Percutaneous Approach (ICD-10-PCS; 2021-06-25)
PROC: 0W9 Anatomical Regions, General, Drainage (ICD-10-PCS; principal; 2021-06-26 09:19)
DX: N75.1 Abscess of Bartholin's gland (principal); D62 Acute posthemorrhagic anemia; K61.0 Anal abscess; L02.214 Cutaneous abscess of groin; L02.215 Cutaneous abscess of perineum; E66.9 Obesity, unspecified; N76.4 Abscess of vulva; F41.9 Anxiety disorder, unspecified; G43.909 Migraine, unspecified, not intractable, without status migrainosus; Z20.822 Contact with and (suspected) exposure to COVID-19; D72.829 Elevated white blood cell count, unspecified; N73.9 Female pelvic inflammatory disease, unspecified; Z86.14 Personal history of Methicillin resistant Staphylococcus aureus infection; Z68.28 Body mass index [BMI] 28.0-28.9, adult
CPT/HCPCS: 99285; Z7506; Z7508; 36415; 36430; 74177; 80048; 80053; 81001; 81025; 82948; 83605; 83735; 84132; 84145; 85007; 85025; 85610; 85730; 86885; 86900; 86901; 86920; 87040; 87070; 87075; 87081; 87635; A4618; A6253; A6266; A6407; A6449; A7000; C9803; G0378; J0131; J1100; J1170; J1650; J1885; J2001; J2250; J2270; J2405; J2543; J2704; J3010; J3480; J3490; J7030; J7120; P9016; Q9967